=== PATIENT | female | born 1960 | race American Indian/Alaskan Native ===

== ENCOUNTER 2016-11-12 08:10 | Day surgery (SDC) | payer OTHER ==
[2016-11-12] MEDS ORDERED: NACL 0.9% 1000 ML 1,000 ML IV SCH (09:00)
[2016-11-12] MEDS ORDERED: DIPRIVAN 10 MG/ML IV ONE ×2 (10:27)
--- NOTE | 2016-11-12 11:09 | Short Stay Summary ---
Short Stay Documentation - Allergies and Medications Current Medications: Allergies No Known Allergies Allergy (Verified 11/12/16 08:22) Home Medications Medication Instructions Recorded Confirmed Last Taken Type ALBUTEROL NEB's 0.083 mg INHALATION TID 11/12/16 11/12/16 11/11/16 History DULoxetine 30 mg PO HS 11/12/16 11/12/16 11/08/16 History Gabapentin 900 mg PO TID 11/12/16 11/12/16 11/11/16 History Hydrochlorothiazide 12.5 mg PO DAILY 11/12/16 11/12/16 11/12/16 History Lidocaine HC 3-0.5% CREAM 5 cream TRANSDERMA TID 11/12/16 11/12/16 11/03/16 History Meloxicam 15 mg PO HS 11/12/16 11/12/16 11/09/16 History Proventil 0.083% NEBS 90 mcg INHALATION BID 11/12/16 11/12/16 11/10/16 History Symbicort 160-4.5 (Nf) 2 puff INHALATION TID 11/12/16 11/12/16 11/04/16 History tiZANidine 2 mg PO BID 11/12/16 11/12/16 11/11/16 History Active Medications Sodium Chloride (Nacl 0.9% 1000 Ml) 1,000 mls @ 50 mls/hr IV DIRECT COLE Last Admin: 11/12/16 09:08 Dose: 50 mls/hr - Brief post op/procedure progress note Date of procedure: 11/12/16 Pre-op diagnosis: Colon cancer screening Post-op diagnosis: same (1. Cecal polyp 2. Internal hemorrhoids) Procedure: Colonoscopy with biopsy Anesthesia: MAC Findings: as above Surgeon: YURIY SHABAZZ Estimated blood loss: none Pathology: list (1. Cecal polyp) Specimen disposition: to lab Condition: stable - Disposition Condition at discharge: Stable Disposition: DC-01 TO HOME OR SELFCARE Short Stay Discharge Plan Activity: no restrictions Weight Bearing Status: Full Weight Bearing Diet: low salt
[2016-11-12 11:27] VITALS: BP 110/77
--- NOTE | 2016-11-12 11:49 | Anesthesia Day of Surgery ---
Anesthesia Day of Surgery - Day of Surgery Patient Examined: Yes Patient H&P Reviewed: Yes Patient is NPO: Yes
--- NOTE | 2016-11-12 11:50 | Anesthesia Consultation ---
Anesthesia Consult and Med Hx Date of service: 11/12/16 - Airway Anesthetic Teeth Evaluation: Good ROM Head & Neck: Adequate Mental/Hyoid Distance: Adequate Mallampati Class: Class II Intubation Access Assessment: Probably Good - Pulmonary Exam CTA: Yes - Cardiac Exam Cardiac Exam: RRR - Pre-Operative Health Status ASA Pre-Surgery Classification: ASA2 Proposed Anesthetic Plan: MAC - Pulmonary Hx Smoking: Yes (quit 1 years ago) Hx Asthma: Yes (inhaler daily, uses inhaler this AM) Hx Respiratory Symptoms: Yes (hx bronchitis) - Cardiovascular System Hx Hypertension: Yes - Central Nervous System Hx Back Pain: Yes (chronic) - Additional Comments Anesthesia Medical History Comments: NAC
--- NOTE | 2016-11-12 13:28 | Post Anesthesia Evaluation ---
- Post Anesthesia Evaluation Patient Participated: Yes Airway Patent: Yes Stable Respiratory Function: Yes Nausea/Vomiting: No Temp > 96.8F: Yes Pain Manageable: Yes Adequeate Hydration: Yes Anesthesia Complications: No
== END 2016-11-12 08:11 | disposition home or self-care (01) ==
LOC: GIO 08:10
PROVIDERS: ATTEND Internal Medicine Gastroenterology
DX: Z12.11 Encounter for screening for malignant neoplasm of colon (principal); D12.0 Benign neoplasm of cecum; K64.8 Other hemorrhoids; M19.90 Unspecified osteoarthritis, unspecified site; J45.909 Unspecified asthma, uncomplicated; I10 Essential (primary) hypertension; M81.0 Age-related osteoporosis without current pathological fracture; Z90.710 Acquired absence of both cervix and uterus; Z79.899 Other long term (current) drug therapy; Z87.891 Personal history of nicotine dependence; Z87.09 Personal history of other diseases of the respiratory system
CPT/HCPCS: 45380; 88305; J2704; J7030